=== PATIENT | male | born 1975 | race Caucasian/White ===

== ENCOUNTER 2018-08-25 12:17 | Emergency (ER) | payer OTHER ==
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
[2018-08-25 14:10] VITALS: BP 139/103
== END 2018-08-25 14:12 | disposition home or self-care (01) ==
LOC: ER 12:17
DX: M54.5 Low back pain (principal); M54.2 Cervicalgia; V49.40XA Driver injured in collision with unspecified motor vehicles in traffic accident, initial encounter; I10 Essential (primary) hypertension; Z87.891 Personal history of nicotine dependence
CPT/HCPCS: 99283